=== PATIENT | female | born 1995 | race Caucasian/White ===

== ENCOUNTER 2017-03-07 01:05 | Emergency (ER) | payer BC ==
[2017-03-07 01:18] VITALS: BP 139/88
--- NOTE | 2017-03-07 01:48 | ER Document Report ---
ED Hand/Wrist Injury - General Chief Complaint: Thumb Injury Stated Complaint: FINGER INJURY Time Seen by Provider: 03/07/17 01:41 Mode of Arrival: Ambulatory Information source: Patient, Friend Notes: Patient comes emergency room with complaint of right thumb abrasion. Patient states that her cat crawled and a small hole in the wall and as she was trying to bang out the drywall she reached in to get the cat scraping the dorsal portion of the thumb on the nail and a piece of wood smacked the finger. Patient has a slight abrasion that has the bleeding under control but wants to be checked out. She denies any animal bite at this time the mental cat was involved. Patient states the board and [place] which she is here for. TRAVEL OUTSIDE OF THE [place] IN LAST 30 DAYS: No - HPI Injury to: Thumb Onset: Just prior to arrival Where: Home Timing: Constant, Still present Quality of pain: Achy, Dull, Throbbing Severity: Moderate Pain Level: 2 Past Medical History - General Information source: Patient - Social History Smoking Status: Current Some Day Smoker Cigarette use (# per day): Yes - 1 per day Frequency of alcohol use: Rare Drug Abuse: None Lives with: Family, Friend Family History: None Patient has suicidal ideation: No Patient has homicidal ideation: No Pulmonary Medical History: Reports: None EENT Medical History: Reports: None Neurological Medical History: Reports: None Endocrine Medical History: Reports: None Renal/ Medical History: Denies: Hx Peritoneal Dialysis Malignancy Medical History: Reports: None GI Medical History: Reports: None Musculoskeltal Medical History: Reports None Psychiatric Medical History: Reports: None Traumatic Medical History: Reports: None Infectious Medical History: Reports: None Other: Patient states last tetanus shot was about 6 months ago. - Immunizations Immunizations up to date: Yes Review of Systems - Review of Systems Constitutional: No symptoms reported EENT: No symptoms reported Cardiovascular: No symptoms reported Respiratory: No symptoms reported Gastrointestinal: No symptoms reported Genitourinary: No symptoms reported Female Genitourinary: No symptoms reported Musculoskeletal: Joint swelling Skin: Other - Abrasion to the dorsum right thumb knuckle Neurological/Psychological: No symptoms reported -: Yes All other systems reviewed and negative Physical Exam - Vital signs Vitals: Temp Pulse Resp BP Pulse Ox 97.9 F 100 17 139/88 H 99 03/07/17 01:15 03/07/17 01:15 03/07/17 01:15 03/07/17 01:15 03/07/17 01:15 Interpretation: Hypertensive - Notes Notes: Examination patient's right hand shows no swelling or decreased range of motion. She is in no apparent distress and is moving the thumb freely when she is somewhat distracted in conversation. - General General appearance: Appears well, Alert In distress: None - Respiratory Respiratory status: No respiratory distress Chest status: Nontender Breath sounds: Normal. No: Rhonchi, Stridor, Wheezing - Cardiovascular Rhythm: Regular Heart sounds: Normal auscultation Murmur: No - Extremities General upper extremity: Tender, Normal color, Normal strength, Normal temperature Hand: Tender, Abrasion, Other - Examination patient's right thumb shows her to be a small less than 5 mm abrasion at the dorsal portion of the MIP of the thumb. Right side only. Patient has full flexion-extension actively as well as passively. Patient has good cap refill in the nail bed of the right thumb. She also has good strength against resistance both in flexion and extension. There is no sign of major edema no sign of any acute abnormality with the exception of the small abrasion.. No: Normal - Skin Skin Temperature: Warm Skin Moisture: Dry Skin Color: [place], Other - As stated above on hand patient has a small less than 5 mm linear abrasion on the MIP of the right thumb. No bleeding currently full flexion and extension with no onset of bleeding in either direction. She has good cap refill in that finger nail bed as well as good strength against resistance to flexion and extension. Skin Turgor: Elastic Course - Vital Signs Vital signs: Temp Pulse Resp BP Pulse Ox 97.9 F 100 17 139/88 H 99 03/07/17 01:15 03/07/17 01:15 03/07/17 01:15 03/07/17 01:15 03/07/17 01:15 Procedures - Immobilization Right Finger Pre-Proc Neuro Vasc Exam: Normal Immobilizer type: Finger splint (Static) Performed by: EVIE Post-Proc Neuro Vasc Exam: Normal Alignment checked and good: Yes Discharge - Discharge Clinical Impression: Finger contusion Abrasion hand Qualifiers: Encounter type: initial encounter Laterality: right Qualified Code(s): S60.511A - Abrasion of right hand, initial encounter Condition: Stable Disposition: HOME, SELF-CARE Additional Instructions: Contusion Your injury has resulted in a contusion -- a crushing of the deep tissues. No injury to important structures was detected during the physician's exam. Contusions vary in the amount of pain they cause, and in the length of time required for healing. Typically, the area will become bruised, and will remain painful to touch for two or three weeks. However, most patients are back to working and playing within a few days. After the initial period of rest and cold-packs, your symptoms (together with the doctor's recommendations) will determine how rapidly you can get back to full activity. Usually this means "do what feels okay, but don't do things that hurt." If re-examination was recommended, it's important to follow up as instructed. Call the doctor or return any time if pain increases, if swelling becomes severe, if you develop numbness or weakness in an injured extremity, or if any other alarming symptoms occur.Abrasions An abrasion is a scraping injury of the skin. Some scarring may result. The seriousness of an abrasion is not always obvious at first. Hidden tissue damage may be present and infection may occur despite proper care. Complete healing may take from ten days to as long as a month. The healing time depends on the depth of the abrasion, and on the amount of crushing of underlying tissues from the injury. Keep the wound and dressing clean. Do not shower or bathe the area until okayed by the doctor. If the dressing gets wet, remove it and blot the wound dry, then reapply a clean dressing. Dressings should be changed every day. Sunscreen should be used for six months after the skin is healed. If any signs of infection occur (swelling, redness, increasing tenderness, red streaks, profuse purulent drainage from the abrasion, tender lumps in the armpit or groin above the abrasion, or fever), see the doctor immediatel Home and rest. Medications prescribed. Take all of the antibiotics please. Also use antibiotic cream on the area twice a day. Keep the area clean and dry as much as possible for the next 24-48 hours. Use the splint for about 3 or 4 days until it feels better. Should you have any concerns return to ER for a recheck and reevaluation. Take ibuprofen or Tylenol for pain or discomfort. He may consider icing it down twice a day for the contusion portion of this. Prescriptions: Clindamycin HCl 300 mg PO QID 7 Days #28 capsule Forms: Elevated Blood Pressure
== END 2017-03-07 02:03 | disposition home or self-care (01) ==
LOC: ER 01:05
DX: S60.00XA Contusion of unspecified finger without damage to nail, initial encounter (principal); S60.311A Abrasion of right thumb, initial encounter; W45.0XXA Nail entering through skin, initial encounter; W22.8XXA Striking against or struck by other objects, initial encounter; Y93.K9 Activity, other involving animal care; Y92.009 Unspecified place in unspecified non-institutional (private) residence as the place of occurrence of the external cause; F17.210 Nicotine dependence, cigarettes, uncomplicated
CPT/HCPCS: 99283

== ENCOUNTER 2017-03-07 17:53 | Emergency (ER) | payer BC ==
[2017-03-07] MEDS ORDERED: IBUPROFEN 800 MG TABLET PO ONE ×2 (18:21→18:29)
--- NOTE | 2017-03-07 18:22 | ER Document Report ---
ED Medical Screen (RME) - General Chief Complaint: Headache Stated Complaint: PAIN AND WEAKNESS Time Seen by Provider: 03/07/17 18:18 Mode of Arrival: Ambulatory Information source: Patient Notes: 22-year-old female who was seen here last night for a scrape to her finger presents with complaints of body aches headache that started today I have greeted and performed a rapid initial assessment of this patient. A comprehensive ED assessment and evaluation of the patient, analysis of test results and completion of the medical decision making process will be conducted by additional ED providers. PHYSICAL EXAMINATION: GENERAL: febrile HEAD: Atraumatic, normocephalic. EYES: Pupils equal round extraocular movements intact, conjunctiva are normal. ENT: Nares patent NECK: limited rom due ot pain LUNGS: No respiratory distress Musculoskeletal: Normal range of motion NEUROLOGICAL: Normal speech, normal gait. PSYCH: Normal mood, normal affect. SKIN: abrasion to finger TRAVEL OUTSIDE OF THE [place] IN LAST 30 DAYS: No - Related Data Allergies/Adverse Reactions: No Known Allergies Allergy (Unverified 03/07/17 17:57) Past Medical History - Social History Frequency of alcohol use: None Drug Abuse: Marijuana - Past Medical History Cardiac Medical History: Reports: Hx Hypertension Pulmonary Medical History: Reports: Hx Asthma Renal/ Medical History: Denies: Hx Peritoneal Dialysis Musculoskeltal Medical History: Reports Hx Arthritis Surgical Hx: Negative - Immunizations Immunizations up to date: Yes Physical Exam - Vital signs Vitals: Temp Pulse Resp BP Pulse Ox 102.4 F H 112 H 20 144/93 H 99 03/07/17 17:57 03/07/17 17:57 03/07/17 17:57 03/07/17 17:57 03/07/17 17:57 Course - Vital Signs Vital signs: Temp Pulse Resp BP Pulse Ox 102.4 F H 112 H 20 144/93 H 99 03/07/17 17:57 03/07/17 17:57 03/07/17 17:57 03/07/17 17:57 03/07/17 17:57
[2017-03-07] MEDS ORDERED: ONDANSETRON 4 MG TAB.RAPDIS PO ONE (18:29)
--- NOTE | 2017-03-07 19:36 | ER Document Report ---
ED Flu Like - General Mode of Arrival: Ambulatory Information source: Patient TRAVEL OUTSIDE OF THE [place] IN LAST 30 DAYS: No - HPI Onset: Other - see narrative Recently seen / treated by doctor: Yes <RHONDA LOWRY - Last Filed: 03/07/17 19:56> <JOHN NIEVES - Last Filed: 03/07/17 20:54> - General Chief Complaint: Headache Stated Complaint: PAIN AND WEAKNESS Time Seen by Provider: 03/07/17 18:18 Notes: Patient is a 22-year-old female that presents to the emergency department today with complaints of generalized joint pain. Patient states she just moved here 5 days ago from [place]. Patient was seen overnight last night for a scrape on her finger. Patient has a history of fibromyalgia. Patient states after she was discharged she developed this generalized joint achiness, a headache, and a fever. Patient denies a cough or sore throat. (RHONDA LOWRY) - Related Data Allergies/Adverse Reactions: No Known Allergies Allergy (Unverified 03/07/17 17:57) Past Medical History - General Information source: Patient - Social History Smoking Status: Current Some Day Smoker Cigarette use (# per day): Yes Frequency of alcohol use: None Drug Abuse: Marijuana Lives with: Spouse/Significant other Family History: None - Past Medical History Cardiac Medical History: Reports: Hx Hypertension Pulmonary Medical History: Reports: Hx Asthma Musculoskeltal Medical History: Reports Hx Arthritis Surgical Hx: Negative - Immunizations Immunizations up to date: Yes <RHONDA LOWRY - Last Filed: 03/07/17 19:56> Review of Systems - Review of Systems Constitutional: See HPI, Fever EENT: denies: Throat pain Cardiovascular: No symptoms reported Respiratory: denies: Cough Gastrointestinal: No symptoms reported Genitourinary: No symptoms reported Female Genitourinary: No symptoms reported Musculoskeletal: See HPI, Joint pain - generalized joint aches Skin: No symptoms reported Hematologic/Lymphatic: No symptoms reported Neurological/Psychological: See HPI, Headaches -: Yes All other systems reviewed and negative <RHONDA LOWRY - Last Filed: 03/07/17 19:56> Physical Exam - Vital signs Interpretation: Normal - General General appearance: Appears well, Alert - HEENT Head: Normocephalic, Atraumatic Eyes: Normal Pupils: PERRL Ears: Normal External canal: Normal Tympanic membrane: Normal Mucous membranes: Moist Pharynx: Normal Neck: Normal - Respiratory Respiratory status: No respiratory distress Chest status: Nontender Breath sounds: Other - coarse breath sounds bilaterally Chest palpation: Normal - Cardiovascular Rhythm: Regular Heart sounds: Normal auscultation Murmur: No - Abdominal Inspection: Obese Distension: No distension Bowel sounds: Normal Tenderness: Nontender Organomegaly: No organomegaly - Back Back: Normal, Nontender - Extremities General upper extremity: Normal inspection, Normal ROM, Normal strength. No: Edema General lower extremity: Normal inspection, Normal ROM, Normal strength. No: Edema - Neurological Neuro grossly intact: Yes Cognition: Normal Orientation: AAOx4 [place] Coma Scale Eye Opening: Spontaneous [place] Coma Scale Verbal: Oriented [place] Coma Scale Motor: Obeys Commands [place] Coma Scale Total: 15 Speech: Normal - Psychological Associated symptoms: Normal affect, Normal mood - Skin Skin Temperature: Warm Skin Moisture: Diaphoretic Skin Color: Normal <RHONDA LOWRY - Last Filed: 03/07/17 19:56> - Vital signs Vitals: Temp Pulse Resp BP Pulse Ox 102.4 F H 112 H 20 144/93 H 99 03/07/17 17:57 03/07/17 17:57 03/07/17 17:57 03/07/17 17:57 03/07/17 17:57 Course - Laboratory Result Diagrams: 03/07/17 19:55 03/07/17 19:55 <JOHN NIEVES - Last Filed: 03/07/17 20:54> - Vital Signs Vital signs: Temp Pulse Resp BP Pulse Ox 102.4 F H 112 H 20 144/93 H 99 03/07/17 17:57 03/07/17 17:57 03/07/17 17:57 03/07/17 17:57 03/07/17 17:57 - Laboratory Laboratory results interpreted by me: 03/07/17 03/07/17 03/07/17 19:55 19:55 19:55 MCV 79 L MCH 26.9 L RDW 16.2 H Lymphocytes % 7.4 L Monocytes % 14.4 H Absolute Lymphocytes 0.4 L Sodium 136.5 L Urine Blood SMALL H Discharge <RHONDA LOWRY - Last Filed: 03/07/17 19:56> <JOHN NIEVES - Last Filed: 03/07/17 20:54> - Discharge Clinical Impression: Viral syndrome, Myalgia Fever Qualifiers: Fever type: unspecified Qualified Code(s): R50.9 - Fever, unspecified Condition: Stable Disposition: HOME, SELF-CARE Additional Instructions: Viral Syndrome: The physician has diagnosed a viral infection. Viruses not only cause "colds," but can cause many different symptoms including generalized aching, fever, headache, cough, diarrhea, nausea, vomiting, and fatigue. The treatment, for the most part, is simply relief of symptoms. This means that antibiotics are usually not given. Rest, fluids, pain medications and, occasionally, medication for the specific symptoms that are most bothersome will be prescribed. Use good handwashing to avoid passing the virus to others. Shared toys should be cleaned with disinfectant. Clean the toilets, sinks, and counter surfaces in bathrooms. Launder clothing in hot water. Contact the physician if you develop any new or unusual symptoms such as severe headache, stiff neck, high fever, chest pain, productive cough, or shortness of breath. You should be rechecked if you don't see marked improvement within seven to 10 days. Your lab work and physical exam suggests this is a viral syndrome causing your fever and generalized aching. You should take Tylenol every 4 hours to keep your fever down. Drink plenty of fluids and get plenty of rest. Follow-up with a local medical doctor if not improving. RETURN TO THE EMERGENCY ROOM IF ANY NEW OR WORSENING SYMPTOMS. Scribe Attestation: 03/07/17 20:54 I personally performed the services described in the documentation, reviewed and edited the documentation which was dictated to the scribe in my presence, and it accurately records my words and actions. (JOHN NIEVES) Scribe Documentation - Scribe Written by Adam:: Adam Muñiz, 03/07/20172004 acting as scribe for :: Patrick <RHONDA LOWRY - Last Filed: 03/07/17 19:56>
[2017-03-07 20:21] LABS: ABSOLUTE LYMPHOCYTES (AUTO) 0.4 10^3/uL (0.5-4.7); ABSOLUTE MONOCYTES (AUTO) 0.8 10^3/uL (0.1-1.4); ABSOLUTE NEUT (AUTO) 4.4 10^3/uL (1.7-8.2); BASOPHILS % (AUTO) 0.9 % (0-2); EOSINOPHILS % (AUTO) 0.1 % (0-6); HEMATOCRIT 39.5 % (36.0-47.0); HEMOGLOBIN 13.4 g/dL (12.0-15.5); HGB HCT DIFFERENCE 0.7; LYMPHOCYTES % (AUTO) 7.4 % (13-45); MEAN CORPUSCULAR HEMOGLOBIN 26.9 pg (27.0-33.4); MEAN CORPUSCULAR HGB CONC 33.9 g/dL (32.0-36.0); MEAN CORPUSCULAR VOLUME 79 fl (80-97); MONOCYTES % (AUTO) 14.4 % (3-13); RED BLOOD COUNT 4.98 10^6/uL (3.72-5.28); RED CELL DISTRIBUTION WIDTH 16.2 % (11.5-14.0); SEGMENTED NEUTROPHILS % (AUTO) 77.2 % (42-78); WHITE BLOOD COUNT 5.7 10^3/uL (4.0-10.5)
[2017-03-07 20:22] LABS: AMORPHOUS SEDIMENT,URINE TRACE /HPF; APPEARANCE,URINE SLIGHTLY-CLOUDY; BILIRUBIN,URINE NEGATIVE (NEGATIVE); GLUCOSE, URINE NEGATIVE (NEGATIVE); KETONES,URINE NEGATIVE (NEGATIVE); LEUKOCYTE ESTERASE,URINE NEGATIVE (NEGATIVE); NITRITE,URINE NEGATIVE (NEGATIVE); PROTEIN,URINE NEGATIVE (NEGATIVE); UROBILINOGEN,URINE NEGATIVE mg/dL (<2.0)
[2017-03-07 20:32] LABS: ALANINE AMINOTRANSFERASE 37 U/L (9-52); ALBUMIN 4.4 g/dL (3.5-5.0); ALKALINE PHOSPHATASE 124 U/L (38-126); ANION GAP 13 (5-19); ASPARTATE AMINO TRANSFERASE 29 U/L (14-36); BILIRUBIN,DIRECT 0.4 mg/dL (0.0-0.4); BILIRUBIN,TOTAL 0.4 mg/dL (0.2-1.3); BLOOD UREA NITROGEN 10 mg/dL (7-20); CALCIUM 9.8 mg/dL (8.4-10.2); CARBON DIOXIDE 23 mmol/L (22-30); CHLORIDE 101 mmol/L (98-107); CREATININE RESULT 0.85 mg/dL (0.52-1.25); GLUCOSE 89 mg/dL (75-110); POTASSIUM 4.2 mmol/L (3.6-5.0); SODIUM 136.5 mmol/L (137-145)
[2017-03-08 05:31] VITALS: BP 119/84
== END 2017-03-07 21:00 | disposition home or self-care (01) ==
LOC: ER 17:53
DX: B34.9 Viral infection, unspecified (principal); M79.1 Myalgia; M25.50 Pain in unspecified joint; R51 Headache; R50.9 Fever, unspecified; F17.210 Nicotine dependence, cigarettes, uncomplicated; I10 Essential (primary) hypertension; J45.909 Unspecified asthma, uncomplicated
CPT/HCPCS: 99284; 36415; 87040; 87070; 87880; 85025; 80053; 81001; 87804; S0119

== ENCOUNTER 2017-07-12 14:37 | Emergency (ER) | payer BC, OTHER ==
[2017-07-12] MEDS ORDERED: ONDANSETRON 4 MG TAB.RAPDIS PO ONE (16:06)
[2017-07-12] MEDS ORDERED: OXYCODONE-ACETAMINOPHEN 5-325 MG TABLET PO ONE (16:06)
--- NOTE | 2017-07-12 16:08 | ER Document Report ---
ED GI/ - General Chief Complaint: Nausea Stated Complaint: DIZZY,NAUSEA,CHILLS Time Seen by Provider: 07/12/17 15:58 Mode of Arrival: Ambulatory Information source: Patient Notes: Patient is a 22 year old female who presents to the ER today for waking up this morning with body aches, nausea, headache. Patient denies any cough, rash but admits to some sinus congestion starting this morning as well. Patient has sick contacts at work with the same symptoms. She denies any shortness of breath, trouble breathing or history of asthma. She denies any vomiting or diarrhea. TRAVEL OUTSIDE OF THE [place] IN LAST 30 DAYS: No - Related Data Allergies/Adverse Reactions: No Known Allergies Allergy (Unverified 03/07/17 17:57) Past Medical History - General Information source: Patient - Social History Smoking Status: Current Every Day Smoker Chew tobacco use (# tins/day): No Frequency of alcohol use: None Drug Abuse: None Family History: None Patient has suicidal ideation: No Patient has homicidal ideation: No - Past Medical History Cardiac Medical History: Reports: Hx Hypertension Pulmonary Medical History: Reports: Hx Asthma Renal/ Medical History: Denies: Hx Peritoneal Dialysis Musculoskeltal Medical History: Reports Hx Arthritis - Immunizations Immunizations up to date: Yes Review of Systems - Review of Systems Constitutional: See HPI EENT: See HPI Cardiovascular: No symptoms reported Respiratory: See HPI Gastrointestinal: No symptoms reported Genitourinary: No symptoms reported Female Genitourinary: No symptoms reported Musculoskeletal: No symptoms reported Skin: No symptoms reported Hematologic/Lymphatic: No symptoms reported Neurological/Psychological: No symptoms reported Physical Exam - Vital signs Vitals: Temp Pulse Resp BP Pulse Ox 99.8 F 84 16 144/79 H 98 07/12/17 15:27 07/12/17 15:27 07/12/17 15:27 07/12/17 15:27 07/12/17 15:27 - Notes Notes: PHYSICAL EXAMINATION: GENERAL: Mildly ill-appearing, but in no acute distress. HEAD: Atraumatic, normocephalic. EYES: Pupils equal round and reactive to light, extraocular movements intact, sclera anicteric, conjunctiva are normal. ENT: ear canals without erythema or foreign body, TMs pearly wise with good bony landmarks, nares patent, oropharynx clear without exudates. Moist mucous membranes. airway patent NECK: Normal range of motion, supple without lymphadenopathy LUNGS: CTAB and equal. No wheezes rales or rhonchi. HEART: Regular rate and rhythm without murmurs ABDOMEN: Soft, no tenderness. No guarding, no rebound BACK: no vertebral tenderness, normal ROM GI/: no CVA tenderness EXTREMITIES: Normal range of motion, no pitting edema. No cyanosis. NEUROLOGICAL: Cranial nerves grossly intact. Normal sensory/motor exams. PSYCH: Normal mood, normal affect. SKIN: Warm, Dry, normal turgor, no rashes or lesions noted Course - Re-evaluation Re-evalutation: 07/12/17 16:07 Patient very likely has a viral syndrome, vital signs are normal here, she is afebrile. Will give her something for the headache and the nausea and have her sent home with symptomatic treatment. - Vital Signs Vital signs: Temp Pulse Resp BP Pulse Ox 99.8 F 84 16 144/79 H 98 07/12/17 15:27 07/12/17 15:27 07/12/17 15:27 07/12/17 15:27 07/12/17 15:27 Discharge - Discharge Clinical Impression: Viral syndrome Condition: Stable Disposition: HOME, SELF-CARE Additional Instructions: Return immediately for any new or worsening symptoms. Follow up with primary care provider, call tomorrow to make followup appointment. Rest and drink plenty of fluids. Prescriptions: Ondansetron [Zofran Odt 4 mg Tablet] 1 - 2 tab PO Q4HP PRN #30 tab.rapdis PRN Reason: Ibuprofen [Motrin 800 mg Tablet] 800 mg PO Q8H PRN #30 tab PRN Reason: Forms: Return to Work
[2017-07-12 16:37] LABS: APPEARANCE,URINE CLEAR; BILIRUBIN,URINE NEGATIVE (NEGATIVE); COLOR,URINE YELLOW; GLUCOSE, URINE NEGATIVE (NEGATIVE); KETONES,URINE NEGATIVE (NEGATIVE); LEUKOCYTE ESTERASE,URINE NEGATIVE (NEGATIVE); NITRITE,URINE NEGATIVE (NEGATIVE); PROTEIN,URINE NEGATIVE (NEGATIVE); UROBILINOGEN,URINE NEGATIVE mg/dL (<2.0)
[2017-07-12] MEDS ORDERED: ONDANSETRON ODT 4 MG TAB (6 TAB/ER DISP) PO PRN (16:50)
[2017-07-12 17:02] VITALS: BP 154/101
== END 2017-07-12 17:02 | disposition home or self-care (01) ==
LOC: ER 14:37
DX: B34.9 Viral infection, unspecified (principal); R11.0 Nausea; R09.81 Nasal congestion; R51 Headache; F17.200 Nicotine dependence, unspecified, uncomplicated; I10 Essential (primary) hypertension
CPT/HCPCS: 99284; 81025; 81001; S0119

== ENCOUNTER 2017-09-24 16:49 | Emergency (ER) | payer OTHER ==
--- NOTE | 2017-09-24 18:11 | ER Document Report ---
ED Medical Screen (RME) - General Chief Complaint: Weakness Stated Complaint: DIZZY, LEG PAIN, TINGLING ARMS, BLURRED VISION Time Seen by Provider: 09/24/17 18:02 Notes: RAPID MEDICAL EVALUATION DISCLOSURE I have seen this patient as part of a Rapid Medical Evaluation and, if applicable, placed any initially appropriate orders. The patient will be seen and fully evaluated, including a full history and physical exam, by a provider ( in Main ED or Fast Track) when a room becomes available. 22-year-old female here with complaints of tingling and weakness and her legs more so than her arms that started approximately 7 hours ago. 2 hours after onset, she started to have some blurry vision that has progressively worsened but denies any headaches nausea vomiting. Also complains of bilateral leg pain that shoots down from the hips but denies back pain. She has been eating drinking per usual. She states that what is concerning to her is the weakness in her extremities. TRAVEL OUTSIDE OF THE [place] IN LAST 30 DAYS: No - Related Data Allergies/Adverse Reactions: No Known Allergies Allergy (Verified 09/24/17 16:58) Past Medical History - Social History Chew tobacco use (# tins/day): No Frequency of alcohol use: None Drug Abuse: None - Past Medical History Cardiac Medical History: Reports: Hx Hypertension Pulmonary Medical History: Reports: Hx Asthma Renal/ Medical History: Denies: Hx Peritoneal Dialysis Musculoskeltal Medical History: Reports Hx Arthritis - Immunizations Immunizations up to date: Yes Physical Exam - Vital signs Vitals: Temp Pulse Resp BP Pulse Ox 98.7 F 88 17 138/94 H 98 09/24/17 16:55 09/24/17 16:55 09/24/17 16:55 09/24/17 16:55 09/24/17 16:55 Course - Vital Signs Vital signs: Temp Pulse Resp BP Pulse Ox 98.7 F 88 17 138/94 H 98 09/24/17 16:55 09/24/17 16:55 09/24/17 16:55 09/24/17 16:55 09/24/17 16:55
--- NOTE | 2017-09-24 19:02 | RADIOLOGY REPORT (SQ) ---
EXAM DESCRIPTION: CT HEAD WITHOUT COMPLETED DATE/TIME: 09/24/2017 6:50 pm REASON FOR STUDY: blurry vision, arm leg weakness; eval mass COMPARISON: None. TECHNIQUE: Axial images acquired through the brain without intravenous contrast. Images reviewed wi th bone, brain and subdural windows. Additional sagittal and coronal reconstructions were generated. Images stored on PACS. All CT scanners at this facility use dose modulation, iterative reconstruction, and/or weight based d osing when appropriate to reduce radiation dose to as low as reasonably achievable (ALARA). [facility]: Dose Right [facility]: CareDose [facility]: Dose Right [facility]: Teradose 4D [facility]: YouScribe RADIATION DOSE: CT Rad equipment meets quality standard of care and radiation dose reduction techniq ues were employed. CTDIvol: 53.2 mGy. DLP: 1017 mGy-cm. mGy. LIMITATIONS: None. FINDINGS: VENTRICLES: Normal size and contour. CEREBRUM: No masses. No hemorrhage. No midline shift. No evidence for acute infarction. Normal gra y/white matter differentiation. No areas of low density in the white matter. CEREBELLUM: No masses. No hemorrhage. No alteration of density. No evidence for acute infarction. EXTRAAXIAL SPACES: No fluid collections. No masses. ORBITS AND GLOBE: No intra- or extraconal masses. Normal contour of globe without masses. CALVARIUM: No fracture. PARANASAL SINUSES: No fluid or mucosal thickening. SOFT TISSUES: No mass or hematoma. OTHER: No other significant finding. IMPRESSION: NORMAL BRAIN CT WITHOUT CONTRAST. EVIDENCE OF ACUTE STROKE: NO. COMMENT: Quality ID # [id number]: Final reports with documentation of one or more dose reduction techniques (e.g., Automated exposure control, adjustment of the mA and/or kV according to patient size, use of iterative reconstruction technique) TECHNICAL DOCUMENTATION: JOB ID: [id number] [employer]- All Rights Reserved Reading location - IP/workstation name: [email or web address]
[2017-09-24 19:05] LABS: ABSOLUTE BASOPHILS # (AUTO) 0.1 10^3/uL (0.0-0.2); ABSOLUTE EOSINOPHILS # (AUTO) 0.4 10^3/uL (0.0-0.6); ABSOLUTE LYMPHOCYTES (AUTO) 3.8 10^3/uL (0.5-4.7); ABSOLUTE MONOCYTES (AUTO) 0.7 10^3/uL (0.1-1.4); ABSOLUTE NEUT (AUTO) 9.7 10^3/uL (1.7-8.2); EOSINOPHILS % (AUTO) 2.7 % (0-6); HEMATOCRIT 39.9 % (36.0-47.0); HEMOGLOBIN 13.2 g/dL (12.0-15.5); MEAN CORPUSCULAR HEMOGLOBIN 26.4 pg (27.0-33.4); MEAN CORPUSCULAR HGB CONC 32.9 g/dL (32.0-36.0); MEAN CORPUSCULAR VOLUME 80 fl (80-97); MONOCYTES % (AUTO) 4.6 % (3-13); PLATELET COUNT 405 10^3/uL (150-450); RED BLOOD COUNT 4.98 10^6/uL (3.72-5.28); RED CELL DISTRIBUTION WIDTH 15.2 % (11.5-14.0); SEGMENTED NEUTROPHILS % (AUTO) 65.7 % (42-78); TOTAL CELLS COUNTED % (AUTO) 100 %; WHITE BLOOD COUNT 14.8 10^3/uL (4.0-10.5)
[2017-09-24 19:21] LABS: ANION GAP 11 (5-19); BLOOD UREA NITROGEN 11 mg/dL (7-20); CALCIUM 9.8 mg/dL (8.4-10.2); CARBON DIOXIDE 26 mmol/L (22-30); CHLORIDE 104 mmol/L (98-107); CREATINE KINASE 91 U/L (30-135); GLUCOSE 95 mg/dL (75-110); PHOSPHORUS 4.5 mg/dL (2.5-4.5); POTASSIUM 4.4 mmol/L (3.6-5.0); SODIUM 141.4 mmol/L (137-145)
--- NOTE | 2017-09-24 20:42 | ER Document Report ---
ED General - General Mode of Arrival: Ambulatory Information source: Patient TRAVEL OUTSIDE OF THE [place] IN LAST 30 DAYS: No <RHONDA LOWRY - Last Filed: 09/24/17 21:24> <BONIFACIO IRBY - Last Filed: 09/25/17 01:45> - General Chief Complaint: Weakness Stated Complaint: DIZZY, LEG PAIN, TINGLING ARMS, BLURRED VISION Time Seen by Provider: 09/24/17 18:02 Notes: Patient is a 22-year-old female with a history of fibromyalgia that presents to the emergency department today with complaints of "pain all over". Patient describes pain as a "tingly, tight, sharp pain". Patient states it feels like "growing pains". Patient states she works at [employer] and she is on her feet all day. Patient states she has been "drinking Gatorade and water all day" so she thinks she is well hydrated. Patient complains of achiness with all movements. Patient denies any new activities, fall, trauma, use of supplements , or history of thyroid abnormalities. (RHONDA LOWRY) - Related Data Allergies/Adverse Reactions: No Known Allergies Allergy (Verified 09/24/17 16:58) Past Medical History - General Information source: Patient - Social History Smoking Status: Current Every Day Smoker Cigarette use (# per day): Yes Chew tobacco use (# tins/day): No Frequency of alcohol use: None Drug Abuse: None Occupation: [employer] Lives with: Family Family History: Reviewed & Not Pertinent Patient has suicidal ideation: No Patient has homicidal ideation: No - Past Medical History Cardiac Medical History: Reports: Hx Hypertension Pulmonary Medical History: Reports: Hx Asthma Musculoskeltal Medical History: Reports Hx Arthritis, Reports Hx Fibromyalgia Surgical Hx: Negative - Immunizations Immunizations up to date: Yes <RHONDA LOWRY - Last Filed: 09/24/17 21:24> Review of Systems - Review of Systems Constitutional: No symptoms reported EENT: No symptoms reported Cardiovascular: No symptoms reported Respiratory: No symptoms reported Gastrointestinal: No symptoms reported Genitourinary: No symptoms reported Female Genitourinary: No symptoms reported Musculoskeletal: See HPI, Muscle pain - "all over" mainly in legs and arms bilaterally Skin: No symptoms reported Hematologic/Lymphatic: No symptoms reported Neurological/Psychological: No symptoms reported -: Yes All other systems reviewed and negative <RHONDA LOWRY - Last Filed: 09/24/17 21:24> Physical Exam - Vital signs Interpretation: Normal - General General appearance: Appears well, Alert - HEENT Head: Normocephalic, Atraumatic Eyes: Normal Pupils: PERRL - Respiratory Respiratory status: No respiratory distress Chest status: Nontender Breath sounds: Normal Chest palpation: Normal - Cardiovascular Rhythm: Regular Heart sounds: Normal auscultation Murmur: No - Abdominal Inspection: Normal Distension: No distension Bowel sounds: Normal Tenderness: Nontender Organomegaly: No organomegaly - Back Back: Normal, Nontender - Extremities General upper extremity: Normal inspection, Nontender, Normal color, Normal ROM , Normal temperature General lower extremity: Normal inspection, Tender - B/l thighs, Normal color, Normal ROM, Normal temperature, Normal weight bearing. No: Krzysztof's sign - Neurological Neuro grossly intact: Yes Cognition: Normal Orientation: AAOx4 [place] Coma Scale Eye Opening: Spontaneous [place] Coma Scale Verbal: Oriented [place] Coma Scale Motor: Obeys Commands [place] Coma Scale Total: 15 Speech: Normal Motor strength normal: LUE, RUE, LLE, RLE Sensory: Normal - Psychological Associated symptoms: Normal affect, Normal mood - Skin Skin Temperature: Warm Skin Moisture: Dry Skin Color: Normal <BONIFACIO IRBY - Last Filed: 09/25/17 01:45> - Vital signs Vitals: Temp Pulse Resp BP Pulse Ox 98.7 F 88 17 138/94 H 98 09/24/17 16:55 09/24/17 16:55 09/24/17 16:55 09/24/17 16:55 09/24/17 16:55 Course - Laboratory Result Diagrams: 09/24/17 18:54 09/24/17 18:54 <RHONDA LOWRY - Last Filed: 09/24/17 21:24> - Laboratory Result Diagrams: 09/24/17 18:54 09/24/17 18:54 <BONIFACIO IRBY - Last Filed: 09/25/17 01:45> - Re-evaluation Re-evalutation: 09/25/17 Patient is a 22-year-old female who comes in complaining of upper and lower extremity pain that was worse at work. Patient is neurovascularly intact with full range of motion and strength throughout. No acute findings on blood work. TSH and CK within normal limits. Patient would like to go home she is feeling better. Stable for discharge. Return if any worsening or concerning symptoms. (BONIFACIO IRBY) - Vital Signs Vital signs: Temp Pulse Resp BP Pulse Ox 98.0 F 90 17 135/85 H 97 09/24/17 22:52 09/24/17 22:52 09/24/17 22:52 09/24/17 22:52 09/24/17 22:52 - Laboratory Laboratory results interpreted by me: 09/24/17 18:54 WBC 14.8 H MCH 26.4 L RDW 15.2 H Absolute Neutrophils 9.7 H Discharge <RHONDA LOWRY - Last Filed: 09/24/17 21:24> <BONIFACIO IRBY - Last Filed: 09/25/17 01:45> - Discharge Clinical Impression: Leg pain, bilateral Condition: Stable Disposition: HOME, SELF-CARE Instructions: Leg Pain Nonspecific ([facility]) Forms: Return to Work Scribe Attestation: 09/25/17 01:45 I personally performed the services described in the documentation, reviewed and edited the documentation which was dictated to the scribe in my presence, and it accurately records my words and actions. (BONIFACIO IRBY) Scribe Documentation - Scribe Written by Scribe:: Adam Muñiz, 09/24/20179 acting as scribe for :: Eduardo <RHONDA LOWRY - Last Filed: 09/24/17 21:24>
[2017-09-24] MEDS ORDERED: ACETAMINOPHEN 325 MG TABLET PO ONE (22:02)
[2017-09-24 23:03] VITALS: BP 135/85
== END 2017-09-24 22:52 | disposition home or self-care (01) ==
LOC: ER 16:49
DX: M79.604 Pain in right leg (principal); M79.605 Pain in left leg; R20.0 Anesthesia of skin; R53.1 Weakness; R42 Dizziness and giddiness; M79.7 Fibromyalgia; F17.210 Nicotine dependence, cigarettes, uncomplicated; I10 Essential (primary) hypertension; J45.909 Unspecified asthma, uncomplicated
CPT/HCPCS: 36415; 70450; 80048; 82550; 83735; 84100; 84443; 85025; 99285

== ENCOUNTER → 2017-10-14 | Outpatient (CLI) | payer OTHER ==
[2017-10-14 15:24] LABS: APPEARANCE,URINE CLEAR; BILIRUBIN,URINE NEGATIVE (NEGATIVE); COLOR,URINE YELLOW; GLUCOSE, URINE NEGATIVE (NEGATIVE); KETONES,URINE NEGATIVE (NEGATIVE); LEUKOCYTE ESTERASE,URINE NEGATIVE (NEGATIVE); NITRITE,URINE NEGATIVE (NEGATIVE); PROTEIN,URINE NEGATIVE (NEGATIVE); URINE SPECIFIC GRAVITY 1.026; UROBILINOGEN,URINE NEGATIVE mg/dL (<2.0)
[2017-10-14 15:27] LABS: ABSOLUTE BASOPHILS # (AUTO) 0.1 10^3/uL (0.0-0.2); ABSOLUTE EOSINOPHILS # (AUTO) 0.6 10^3/uL (0.0-0.6); ABSOLUTE MONOCYTES (AUTO) 0.9 10^3/uL (0.1-1.4); ABSOLUTE NEUT (AUTO) 9.5 10^3/uL (1.7-8.2); BASOPHILS % (AUTO) 0.6 % (0-2); EOSINOPHILS % (AUTO) 3.8 % (0-6); HEMATOCRIT 40.1 % (36.0-47.0); LYMPHOCYTES % (AUTO) 26.5 % (13-45); MEAN CORPUSCULAR HEMOGLOBIN 25.9 pg (27.0-33.4); MEAN CORPUSCULAR HGB CONC 32.5 g/dL (32.0-36.0); MEAN CORPUSCULAR VOLUME 80 fl (80-97); MONOCYTES % (AUTO) 5.9 % (3-13); PLATELET COUNT 425 10^3/uL (150-450); RED BLOOD COUNT 5.03 10^6/uL (3.72-5.28); RED CELL DISTRIBUTION WIDTH 15.5 % (11.5-14.0); SEGMENTED NEUTROPHILS % (AUTO) 63.2 % (42-78); TOTAL CELLS COUNTED % (AUTO) 100 %
[2017-10-14 15:52] LABS: ALANINE AMINOTRANSFERASE 18 U/L (9-52); ALBUMIN 4.3 g/dL (3.5-5.0); ALKALINE PHOSPHATASE 91 U/L (38-126); AMYLASE 45 U/L (30-110); ANION GAP 11 (5-19); ASPARTATE AMINO TRANSFERASE 20 U/L (14-36); BILIRUBIN,DIRECT 0.2 mg/dL (0.0-0.4); BILIRUBIN,TOTAL 0.3 mg/dL (0.2-1.3); BLOOD UREA NITROGEN 16 mg/dL (7-20); C-REACTIVE PROTEIN 8.2 mg/L (<10.0); CALCIUM 9.7 mg/dL (8.4-10.2); CARBON DIOXIDE 27 mmol/L (22-30); CHLORIDE 103 mmol/L (98-107); GLUCOSE 84 mg/dL (75-110); LIPASE 62.1 U/L (23-300); POTASSIUM 4.7 mmol/L (3.6-5.0); SODIUM 140.8 mmol/L (137-145); TOTAL PROTEIN 7.7 g/dL (6.3-8.2)
[2017-10-14 16:04] LABS: ERYTHROCYTE SEDIMENTATION RATE 14 mm/hr (0-20)
[2017-10-16 07:41] LABS: ENDOMYSIAL ANTIBODY IGA Negative (Negative)
[2017-10-16 13:48] LABS: HELICOBACTER PYLORI IGA AB <9.0 units (0.0-8.9); HELICOBACTER PYLORI IGG AB <0.80 (0.00-0.79); HELICOBACTER PYLORI IGM AB <9.0 units (0.0-8.9)
[2017-10-16 13:50] LABS: DEAMIDATED GLIADIN IGA AB 3 units (0-19); DEAMIDATED GLIADIN IGG AB 2 units (0-19); T-TRANSGLUTAMINASE (TTG) IGA <2 U/mL (0-3); T-TRANSGLUTAMINASE (TTG) IGG <2 U/mL (0-5)
[2017-10-16 20:08] LABS: SACCHAROMYCES CEREVISIAE IGA <20.0 Units (0.0-24.9); SACCHAROMYCES CEREVISIAE IGG 30.5 Units (0.0-24.9)
== END ==
LOC: LAB 14:25
PROVIDERS: ATTEND Family Medicine
DX: R10.9 Unspecified abdominal pain (principal); R19.7 Diarrhea, unspecified
CPT/HCPCS: 36415; 80053; 81001; 82150; 82656; 83520; 83690; 84443; 85025; 85652; 86140; 86671; 86677; 87045; 87177; 87205; 87493; 89055

== ENCOUNTER 2017-11-01 16:14 | Emergency (ER) | payer OTHER ==
[2017-11-01 16:36] VITALS: BP 139/91
--- NOTE | 2017-11-01 16:57 | ER Document Report ---
ED General - General Chief Complaint: Ear Pain Stated Complaint: HEADACHE Time Seen by Provider: 11/01/17 16:23 Mode of Arrival: Ambulatory Information source: Patient, Relative Notes: 22-year-old female presents with complaints of grinding sounds in her ears as well as generalized sensation of anxiety. Patient notes she has an extensive history of anxiety used to be on multiple medications but since she has moved here she has been unable to see a psychiatrist. She denies any fevers or chills not taking any medications at all at this time TRAVEL OUTSIDE OF THE [place] IN LAST 30 DAYS: No - HPI Onset: Other - several weeks Onset/Duration: Intermittent Quality of pain: No pain Severity: Mild Pain Level: Denies Associated symptoms: Other Exacerbated by: Denies Relieved by: Denies Similar symptoms previously: Yes Recently seen / treated by doctor: No - Related Data Allergies/Adverse Reactions: No Known Allergies Allergy (Verified 11/01/17 16:37) Past Medical History - Social History Smoking Status: Current Every Day Smoker Cigarette use (# per day): Yes Chew tobacco use (# tins/day): No Smoking Education Provided: No Frequency of alcohol use: None Drug Abuse: Marijuana Family History: Reviewed & Not Pertinent Patient has suicidal ideation: No Patient has homicidal ideation: No - Past Medical History Cardiac Medical History: Reports: Hx Hypertension Pulmonary Medical History: Reports: Hx Asthma Renal/ Medical History: Denies: Hx Peritoneal Dialysis Musculoskeltal Medical History: Reports Hx Arthritis, Reports Hx Fibromyalgia - Immunizations Immunizations up to date: Yes Review of Systems - Review of Systems Notes: REVIEW OF SYSTEMS: CONSTITUTIONAL : Denies fever, chills, or sweats. Denies recent illness. EENT: Grinding sounds in ears CARDIOVASCULAR: Denies chest pain. Denies palpitations or racing or irregular heart beat. Denies ankle edema. RESPIRATORY: Denies cough, cold, or chest congestion. Denies shortness of breath, difficulty breathing, or wheezing. GASTROINTESTINAL: Denies abdominal pain or distention. Denies nausea, vomiting , or diarrhea. Denies blood in vomitus, stools, or per rectum. Denies black, tarry stools. Denies constipation. GENITOURINARY: Denies difficulty urinating, painful urination, burning, frequency, blood in urine, or discharge. FEMALE GENITOURINARY: Denies vaginal bleeding, heavy or abnormal periods, irregular periods. Denies vaginal discharge or odor. MUSCULOSKELETAL: Denies back or neck pain or stiffness. Denies joint pain or swelling. SKIN: Denies rash, lesions or sores. HEMATOLOGIC : Denies easy bruising or bleeding. LYMPHATIC: Denies swollen, enlarged glands. NEUROLOGICAL: Denies confusion or altered mental status. Denies passing out or loss of consciousness. Denies dizziness or lightheadedness. Denies headache. Denies weakness or paralysis or loss of use of either side. Denies problems with gait or speech. Denies sensory loss, numbness, or tingling. Denies seizures. PSYCHIATRIC: anxiety depression ALL OTHER SYSTEMS REVIEWED AND NEGATIVE. PHYSICAL EXAMINATION: GENERAL: Well-appearing, well-nourished and in no acute distress. HEAD: Atraumatic, normocephalic. EYES: Pupils equal round and reactive to light, extraocular movements intact, conjunctiva are normal. ENT: Nares patent, oropharynx clear without exudates. Moist mucous membranes. NECK: Normal range of motion, supple without lymphadenopathy LUNGS: Breath sounds clear to auscultation bilaterally and equal. No wheezes rales or rhonchi. HEART: Regular rate and rhythm without murmurs ABDOMEN: Soft, nontender, nondistended abdomen. No guarding, no rebound. No masses appreciated. Female : deferred Musculoskeletal: Normal range of motion, no pitting or edema. No cyanosis. NEUROLOGICAL: Cranial nerves grossly intact. Normal speech, normal gait. Normal sensory, motor exams PSYCH: anxious SKIN: Warm, Dry, normal turgor, no rashes or lesions noted. Dictation was performed using [employer] voice recognition software Physical Exam - Vital signs Vitals: Temp Pulse Resp BP Pulse Ox 98.1 F 89 20 139/91 H 99 11/01/17 16:35 11/01/17 16:35 11/01/17 16:35 11/01/17 16:35 11/01/17 16:35 Course - Re-evaluation Re-evalutation: 11/01/17 20:19 Examination of the ears notes no significant abnormality, patient has no obvious signs of tinnitus or any life-threatening issues, I did ask mental health evaluate the patient for medication needs for her depression anxiety which I believe the cause of her symptoms, they have provided me with information and I will start the patient on medication as well as give her resources After performing a Medical Screening Examination, I estimate there is LOW risk for any life threatening mental health issues. At this time the patient looks extremely well and has not attempted severe self harm. I have reevaluated this patient multiple times and no significant life threatening changes are noted. The patient and I have discussed the diagnosis and risks, and we agree with discharging home with close follow-up with the understanding that symptoms and presentations can change. We also discussed returning to the Emergency Department immediately if new or worsening symptoms occur. We have discussed the symptoms which are most concerning (hallucinations, thoughts or actions of self harm or harm to others) that necessitate immediate return. - Vital Signs Vital signs: Temp Pulse Resp BP Pulse Ox 98.1 F 89 20 139/91 H 99 11/01/17 16:35 11/01/17 16:35 11/01/17 16:35 11/01/17 16:35 11/01/17 16:35 Discharge - Discharge Clinical Impression: Anxiety Tinnitus Qualifiers: Laterality: unspecified laterality Qualified Code(s): H93.19 - Tinnitus, unspecified ear Depressed Qualifiers: Depression Type: unspecified Qualified Code(s): F32.9 - Major depressive disorder, single episode, unspecified Condition: Stable Disposition: HOME, SELF-CARE Prescriptions: Buspirone HCl [Buspar 10 mg Tablet] 10 mg PO BID #60 tablet Venlafaxine HCl ER [Effexor Xr 37.5 mg Cap.sr] 37.5 mg PO DAILY #30 cap.sr.24h Forms: Return to Work Referrals: ALEJANDRINA CAMILO MD [Primary Care Provider] - Follow up tomorrow
== END 2017-11-01 17:00 | disposition home or self-care (01) ==
LOC: ER 16:14
DX: F41.9 Anxiety disorder, unspecified (principal); H93.19 Tinnitus, unspecified ear; F32.9 Major depressive disorder, single episode, unspecified; H92.03 Otalgia, bilateral; R51 Headache; I10 Essential (primary) hypertension; F17.210 Nicotine dependence, cigarettes, uncomplicated
CPT/HCPCS: 99282

== ENCOUNTER 2018-01-17 08:57 | Emergency (ER) | payer OTHER ==
[2018-01-17 09:04] VITALS: BP 138/93
--- NOTE | 2018-01-17 09:32 | ER Document Report ---
HPI - HPI Pain Level: 1 Notes: Patient is an otherwise healthy 23-year-old female who presents with chief complaint of "tapeworm". Patient reports over the last 6 months she has had strange and intermittent episodes of diarrhea and low abdominal cramping. Patient reports she has seen her primary care provider to no avail. Patient reports that just prior to arrival she had a bowel movement and there was a thin whitish archer strip that appeared to look like a crumbled straw wrapper. Patient reports she googled the symptoms and felt this was consistent with a tape worm. Patient denies any nausea, vomiting or fevers. Past Medical History - General Information source: Patient - Social History Smoking Status: Current Every Day Smoker Drug Abuse: Marijuana Family History: Reviewed & Not Pertinent Patient has suicidal ideation: No Patient has homicidal ideation: No - Past Medical History Cardiac Medical History: Reports: Hx Hypertension Pulmonary Medical History: Reports: Hx Asthma Renal/ Medical History: Denies: Hx Peritoneal Dialysis Musculoskeletal Medical History: Reports Hx Arthritis, Reports Hx Fibromyalgia - Immunizations Immunizations up to date: Yes Vertical Provider Document - CONSTITUTIONAL Notes: PHYSICAL EXAMINATION: GENERAL: Well-appearing, well-nourished and in no acute distress. HEAD: Atraumatic, normocephalic. EYES: Pupils equal round and reactive to light, extraocular movements intact, conjunctiva are normal. ENT: Nares patent, oropharynx clear without exudates. Moist mucous membranes. NECK: Normal range of motion, supple without lymphadenopathy LUNGS: Breath sounds clear to auscultation bilaterally and equal. No wheezes rales or rhonchi. HEART: Regular rate and rhythm without murmurs ABDOMEN: Soft, nontender, nondistended abdomen. No guarding, no rebound. No masses appreciated. Female : deferred Musculoskeletal: Normal range of motion, no pitting or edema. No cyanosis. NEUROLOGICAL: Cranial nerves grossly intact. Normal speech, normal gait. Normal sensory, motor exams PSYCH: Normal mood, normal affect. SKIN: Warm, Dry, normal turgor, no rashes or lesions noted. - INFECTION CONTROL TRAVEL OUTSIDE OF THE [place] 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 Will treat patient and discharged home. Patient encouraged to follow-up with her primary care provider in the next 3-5 days for a follow-up. Went over side effects of medication with patient. - Vital Signs Vital signs: Temp Pulse Resp BP Pulse Ox 98.4 F 95 16 138/93 H 96 01/17/18 09:02 01/17/18 09:02 01/17/18 09:02 01/17/18 09:02 01/17/18 09:02 Discharge - Discharge Clinical Impression: Tapeworm Condition: Stable Disposition: HOME, SELF-CARE Additional Instructions: Based upon your symptoms and description it appears that you have probably passed a tapeworm. Please take this medication I am prescribing as a one-time dose. Please return to the emergency department if you develop worsening symptoms, abdominal pain, blood in your stools, fever or any other symptom that is concerning to you. Please follow-up with Dr. Camilo in the next 3-5 days for a follow-up. Prescriptions: Albendazole [Albenza] 400 mg PO NOW #4 tablet Praziquantel 2,400 mg PO ONCE 1 Days #4 tablet Forms: Return to Work Referrals: ALEJANDRINA CAMILO MD [Primary Care Provider] - Follow up as needed
== END 2018-01-17 09:37 | disposition home or self-care (01) ==
LOC: ER 08:57
DX: B71.9 Cestode infection, unspecified (principal); R10.30 Lower abdominal pain, unspecified; R19.7 Diarrhea, unspecified; F17.200 Nicotine dependence, unspecified, uncomplicated; I10 Essential (primary) hypertension
CPT/HCPCS: 99283

== ENCOUNTER 2018-01-21 13:22 | Emergency (ER) | payer OTHER ==
[2018-01-21] MEDS ORDERED: ONDANSETRON HCL INJ/PF 4 MG/2 ML SDV IV ONE (14:21)
[2018-01-21] MEDS ORDERED: RINGERS SOLUTION,LACTATED 1,000 ML IV ONE (14:21)
[2018-01-21] MEDS ORDERED: ONDANSETRON HCL INJ/PF 4 MG/2 ML SDV ONE (14:25)
--- NOTE | 2018-01-21 14:29 | ER Document Report ---
ED GI/ - General Chief Complaint: General Weakness Stated Complaint: NAUSEA, WEAKNESS Time Seen by Provider: 01/21/18 14:07 Mode of Arrival: Ambulatory Information source: Patient Notes: 23-year-old female presents to ED for complaint of general body aches dizziness nausea vomiting and diarrhea since she has been taken the bill tried for her tapeworm on 01/17/2019. She states she just feels very weak all the time now because of the diarrhea nausea and vomiting. Patient is alert and oriented respirations regular and unlabored speaking in full sentences and walks with a steady gait. TRAVEL OUTSIDE OF THE [place] IN LAST 30 DAYS: No - HPI Patient complains to provider of: Abdominal pain, Diarrhea, Vomiting, Other - States she feels tired and weak body aches Onset: Other - 01/17/2018 Timing/Duration: Persistent Quality of pain: Cramping Severity at maximum: Moderate Severity in ED: Moderate Pain Level: 2 Location: Other - generalized Vaginal bleeding (Compared to normal period): None Associated symptoms: Diarrhea, Nausea, Vomiting, Other - Weak and fatigued all the time from the diarrhea and nausea and vomiting Exacerbated by: Denies Relieved by: Denies Similar symptoms previously: Yes Recently seen / treated by doctor: No - Related Data Allergies/Adverse Reactions: No Known Allergies Allergy (Verified 01/21/18 13:23) Past Medical History - General Information source: Patient - Social History Smoking Status: Current Every Day Smoker Cigarette use (# per day): Yes - 3-4 cigerattes a day Chew tobacco use (# tins/day): No Smoking Education Provided: Yes Frequency of alcohol use: None Drug Abuse: None Occupation: call center Lives with: Spouse/Significant other Family History: Reviewed & Not Pertinent Patient has suicidal ideation: No Patient has homicidal ideation: No - Past Medical History Cardiac Medical History: Reports: Hx Hypertension Pulmonary Medical History: Reports: Hx Asthma EENT Medical History: Reports: None Neurological Medical History: Reports: None Endocrine Medical History: Reports: None Renal/ Medical History: Reports: None Malignancy Medical History: Reports: None GI Medical History: Reports: Other - Tape worm Musculoskeletal Medical History: Reports Hx Arthritis, Reports Hx Fibromyalgia Skin Medical History: Reports None Psychiatric Medical History: Reports: None Traumatic Medical History: Reports: None Infectious Medical History: Reports: None Surgical Hx: Negative Past Surgical History: Reports: None - Immunizations Immunizations up to date: Yes Hx Diphtheria, Pertussis, Tetanus Vaccination: Yes Review of Systems - Review of Systems Constitutional: No symptoms reported EENT: No symptoms reported Cardiovascular: No symptoms reported Respiratory: No symptoms reported Gastrointestinal: Abdominal pain, Diarrhea, Nausea, Vomiting Genitourinary: No symptoms reported Female Genitourinary: No symptoms reported Musculoskeletal: No symptoms reported Skin: No symptoms reported Hematologic/Lymphatic: No symptoms reported Neurological/Psychological: Weakness -: Yes All other systems reviewed and negative Physical Exam - Vital signs Vitals: Temp Pulse Resp BP Pulse Ox 98.3 F 93 20 146/88 H 100 01/21/18 13:31 01/21/18 13:31 01/21/18 13:31 01/21/18 13:31 01/21/18 13:31 Interpretation: Normal - General General appearance: Appears well, Alert - HEENT Head: Normocephalic, Atraumatic Eyes: Normal Pupils: PERRL - Respiratory Respiratory status: No respiratory distress Chest status: Nontender Breath sounds: Normal Chest palpation: Normal - Cardiovascular Rhythm: Regular Heart sounds: Normal auscultation Murmur: No - Abdominal Inspection: Normal Distension: No distension Bowel sounds: Normal Tenderness: Tender Organomegaly: No organomegaly - Back Back: Normal, Nontender - Extremities General upper extremity: Normal inspection, Nontender, Normal color, Normal ROM , Normal temperature General lower extremity: Normal inspection, Nontender, Normal color, Normal ROM , Normal temperature, Normal weight bearing. No: Krzysztof's sign - Neurological Neuro grossly intact: Yes Cognition: Normal Orientation: AAOx4 [place] Coma Scale Eye Opening: Spontaneous [place] Coma Scale Verbal: Oriented [place] Coma Scale Motor: Obeys Commands [place] Coma Scale Total: 15 Speech: Normal Motor strength normal: LUE, RUE, LLE, RLE Sensory: Normal - Psychological Associated symptoms: Normal affect, Normal mood - Skin Skin Temperature: Warm Skin Moisture: Dry Skin Color: Normal Course - Vital Signs Vital signs: Temp Pulse Resp BP Pulse Ox 98.0 F 82 16 142/87 H 99 01/21/18 16:53 01/21/18 16:53 01/21/18 16:53 01/21/18 16:53 01/21/18 16:53 - Laboratory Result Diagrams: 01/21/18 14:40 01/21/18 14:40 Laboratory results interpreted by me: 01/21/18 01/21/18 14:40 15:40 WBC 13.5 H RDW 16.0 H Absolute Neutrophils 8.6 H Ur Leukocyte Esterase TRACE H Discharge - Discharge Clinical Impression: Nausea, vomiting, and diarrhea Condition: Stable Disposition: HOME, SELF-CARE Additional Instructions: VOMITING: Vomiting (or nausea without vomiting) can be caused by many other different problems. It can mean that something's wrong with the stomach, such as ulcers or inflammation or the intestinal tract, such as appendicitis. But it can also be a symptom of a problem that has nothing to do with the stomach or intestines. Vomiting is common with severe headaches, earaches, tonsillitis, and kidney infections, etc. We see it with pneumonia or heart attacks. Drugs can cause nausea and vomiting. Many abdominal problems cause vomiting; for example, gallstones, kidney stones, pancreatitis, and intestinal obstruction ( blocked bowels). In most cases, curing the vomiting depends on fixing the problem that caused it. For temporary relief, we may use an anti-nausea medicine. For home use, we can prescribe suppositories, chewable pills, pills that dissolve in the mouth, or liquid anti-nausea drugs. If the vomiting seems to be caused by a problem in the stomach, acid-suppressing drugs may be prescribed as well. It's important to avoid dehydration. Sip small amounts of clear liquids ( soft drinks, tea, broth, etc) . Try to take fluids frequently even if you are vomiting to prevent dehydration. Take increasing amounts of fluid and when liquids are being consumed successfully, advance to small amounts of bland food (toast, soups, mashed potatoes, etc.) until you are able to resume a regular diet. Avoid aspirin, tobacco, and alcohol. If the vomiting worsens, if the problem that's making you vomit worsens, or if there's evidence of bleeding in the stomach (such as black, tarry stool, or bloody or black vomit), you should return immediately. Also, return if abdominal pain worsens or becomes localized to one area or you develop high fever. Call your doctor if you aren't improved in 24 hours. DIARRHEA, NON-SPECIFIC: Diarrhea means frequent, watery stools. There are many causes. Any problem that keeps the intestinal tract from absorbing water from the stool can lead to diarrhea. A sudden new diarrhea problem is usually caused by a virus, food sensitivity, toxic bacteria, or drugs. In this case, we expect the problem to go away soon. Testing is done only if you seem seriously ill from the diarrhea. If you have chronic diarrhea, or diarrhea that keeps coming back, we need to find out why. Chronic diarrhea can be due to inflammation of the bowels such as Crohn's disease or ulcerative colitis, food sensitivity such as intolerance to lactose or wheat protein, irritable bowel syndrome, and other problems. If your diarrhea is a significant problem but it's not clear why you have it, we' ll refer you to a specialist for further testing. During an episode of diarrhea, drink small amounts (two to six ounces) of clear liquids (soft drinks, sport drinks, herb teas, broth, etc). Take fluids frequently to prevent dehydration. It's usually not a problem to take mild anti- diarrhea medication such as Kaopectate or Pepto-Bismol. As the diarrhea eases, advance to small amounts of bland food (mashed potato, toast) for 24 hours. Call the physician if blood appears in your vomit or stool, if vomiting lasts longer than 24 hours, if the abdominal pain worsens or becomes localized to one area, if you develop high fever, or if you become lightheaded and weak. VIRAL SYNDROME: The physician has diagnosed a viral infection. Viruses not only cause "colds," but can cause many different symptoms including generalized aching, fever, headache, cough, diarrhea, nausea, vomiting, and fatigue. The treatment, for the most part, is simply relief of symptoms. This means that antibiotics are usually not given. Rest, fluids, pain medications and, occasionally, medication for the specific symptoms that are most bothersome will be prescribed. Use good handwashing to avoid passing the virus to others. Shared toys should be cleaned with disinfectant. Clean the toilets, sinks, and counter surfaces in bathrooms. Launder clothing in hot water. Contact the physician if you develop any new or unusual symptoms such as severe headache, stiff neck, high fever, chest pain, productive cough, or shortness of breath. You should be rechecked if you don't see marked improvement within seven to 10 days. INTRAVENOUS (I V) FLUIDS: As part of your care today, you received intravenous (IV) fluids. IV fluids are administered to patients who are dehydrated or to those who have certain chemical (electrolyte) abnormalities that need correcting. ANTINAUSEA MEDICATION: You have been given a medication to suppress nausea and vomiting. This type of medication can be given as a shot, pill, or suppository. It will usually last for many hours. Pills and shots usually last six to eight hours. For the typical illness, only one or two doses of the medication may be necessary. Mild lightheadedness may occur. This type of medicine can cause drowsiness. Do not drive or operate dangerous machinery while under its influence. Do not mix with alcohol. See your doctor at once if you have muscle spasms or tightness, or uncontrollable motions (particularly of the neck, mouth, or jaw). Persistent vomiting or severe lightheadedness should also be evaluated by the physician. FOLLOW-UP CARE: If you have been referred to a physician for follow-up care, call the physician s office for an appointment as you were instructed or within the next two days. If you experience worsening or a significant change in your symptoms, notify the physician immediately or return to the Emergency Department at any time for re-evaluation. Prescriptions: Promethazine HCl [Phenergan 25 mg Tablet] 25 mg PO Q6H PRN #15 tablet PRN Reason: Forms: Elevated Blood Pressure, Smoking Cessation Education, Return to Work Referrals: ALEJANDRINA CAMILO MD [Primary Care Provider] - Follow up in 3-5 days
[2018-01-21 15:04] LABS: ABSOLUTE BASOPHILS # (AUTO) 0.1 10^3/uL (0.0-0.2); ABSOLUTE EOSINOPHILS # (AUTO) 0.5 10^3/uL (0.0-0.6); ABSOLUTE LYMPHOCYTES (AUTO) 3.4 10^3/uL (0.5-4.7); ABSOLUTE MONOCYTES (AUTO) 0.9 10^3/uL (0.1-1.4); ABSOLUTE NEUT (AUTO) 8.6 10^3/uL (1.7-8.2); BASOPHILS % (AUTO) 0.6 % (0-2); EOSINOPHILS % (AUTO) 3.9 % (0-6); HEMATOCRIT 38.3 % (36.0-47.0); HEMOGLOBIN 12.9 g/dL (12.0-15.5); LYMPHOCYTES % (AUTO) 25.3 % (13-45); MEAN CORPUSCULAR HEMOGLOBIN 27.1 pg (27.0-33.4); MEAN CORPUSCULAR HGB CONC 33.6 g/dL (32.0-36.0); MEAN CORPUSCULAR VOLUME 81 fl (80-97); MONOCYTES % (AUTO) 6.5 % (3-13); PLATELET COUNT 429 10^3/uL (150-450); RED BLOOD COUNT 4.75 10^6/uL (3.72-5.28); SEGMENTED NEUTROPHILS % (AUTO) 63.7 % (42-78); TOTAL CELLS COUNTED % (AUTO) 100 %; WHITE BLOOD COUNT 13.5 10^3/uL (4.0-10.5)
[2018-01-21 15:26] LABS: ALANINE AMINOTRANSFERASE 14 U/L (9-52); ALKALINE PHOSPHATASE 83 U/L (38-126); ANION GAP 12 (5-19); ASPARTATE AMINO TRANSFERASE 18 U/L (14-36); BILIRUBIN,DIRECT 0.2 mg/dL (0.0-0.4); BILIRUBIN,TOTAL 0.2 mg/dL (0.2-1.3); BLOOD UREA NITROGEN 11 mg/dL (7-20); CALCIUM 9.1 mg/dL (8.4-10.2); CARBON DIOXIDE 24 mmol/L (22-30); CHLORIDE 105 mmol/L (98-107); GLUCOSE 97 mg/dL (75-110); POTASSIUM 4.4 mmol/L (3.6-5.0); SODIUM 140.9 mmol/L (137-145); TOTAL PROTEIN 7.3 g/dL (6.3-8.2)
[2018-01-21 16:09] LABS: APPEARANCE,URINE SLIGHTLY-CLOUDY; BILIRUBIN,URINE NEGATIVE (NEGATIVE); COLOR,URINE YELLOW; GLUCOSE, URINE NEGATIVE (NEGATIVE); KETONES,URINE NEGATIVE (NEGATIVE); LEUKOCYTE ESTERASE,URINE TRACE (NEGATIVE); NITRITE,URINE NEGATIVE (NEGATIVE); PROTEIN,URINE NEGATIVE (NEGATIVE); URINE SPECIFIC GRAVITY 1.023; UROBILINOGEN,URINE NEGATIVE mg/dL (<2.0)
[2018-01-21] MEDS ORDERED: PROMETHAZINE HCL 25 MG TABLET PO ONE (16:48)
[2018-01-21 16:54] VITALS: BP 142/87
== END 2018-01-21 17:01 | disposition home or self-care (01) ==
LOC: ER 13:22
DX: R11.2 Nausea with vomiting, unspecified (principal); R19.7 Diarrhea, unspecified; B71.9 Cestode infection, unspecified; R42 Dizziness and giddiness; R53.1 Weakness; R53.83 Other fatigue; R10.84 Generalized abdominal pain; F17.210 Nicotine dependence, cigarettes, uncomplicated; I10 Essential (primary) hypertension; J45.909 Unspecified asthma, uncomplicated
CPT/HCPCS: 99285; 96361; 96374; 36415; 84703; 85025; 80053; 81001; J2405; J7120

== ENCOUNTER 2018-02-01 10:24 | Emergency (ER) | payer OTHER ==
[2018-02-01] MEDS ORDERED: DIPHENHYDRAMINE HCL 50 MG/ML VIAL IV ONE (10:52)
[2018-02-01] MEDS ORDERED: NORMAL SALINE 1000 ML 1,000 ML IV ONE (10:52)
[2018-02-01] MEDS ORDERED: KETOROLAC TROMETHAMINE INJ/PF 30 MG/1 ML SDV IV ONE (10:52)
[2018-02-01] MEDS ORDERED: METOCLOPRAMIDE HCL INJ/PF 10 MG/2 ML SDV IV ONE (10:52)
--- NOTE | 2018-02-01 11:24 | ER Document Report ---
ED Headache - General Chief Complaint: Blurred Vision Stated Complaint: BLURRED VISION, HEAD PAIN Time Seen by Provider: 02/01/18 10:47 Mode of Arrival: Ambulatory Notes: 23 yo female had to leave work due to gradual onset left sided headache, nausea , blurred/hazy vision after she got to work at 10 am. She has history of daily morning dizziness and fatique for months. No migraine hx. HUANG is now gone after the medications given. TRAVEL OUTSIDE OF THE [place] IN LAST 30 DAYS: No - Related Data Allergies/Adverse Reactions: No Known Allergies Allergy (Verified 02/01/18 10:27) Past Medical History - General Information source: Patient - Social History Smoking Status: Current Every Day Smoker Chew tobacco use (# tins/day): No Frequency of alcohol use: None Drug Abuse: Marijuana Lives with: Spouse/Significant other Family History: Reviewed & Not Pertinent Patient has suicidal ideation: No Patient has homicidal ideation: No - Past Medical History Cardiac Medical History: Reports: Hx Hypertension Pulmonary Medical History: Reports: Hx Asthma Renal/ Medical History: Denies: Hx Peritoneal Dialysis Musculoskeletal Medical History: Reports Hx Arthritis, Reports Hx Fibromyalgia Surgical Hx: Negative - Immunizations Immunizations up to date: Yes Hx Diphtheria, Pertussis, Tetanus Vaccination: Yes Review of Systems - Review of Systems Constitutional: No symptoms reported EENT: See HPI Cardiovascular: No symptoms reported Respiratory: No symptoms reported Gastrointestinal: See HPI Genitourinary: No symptoms reported Female Genitourinary: No symptoms reported Musculoskeletal: No symptoms reported Skin: No symptoms reported Hematologic/Lymphatic: No symptoms reported Neurological/Psychological: See HPI Physical Exam - Vital signs Vitals: Temp Pulse Resp BP Pulse Ox 98.1 F 92 18 135/93 H 98 02/01/18 10:30 02/01/18 10:30 02/01/18 10:30 02/01/18 10:30 02/01/18 10:30 Interpretation: Normal - General General appearance: Appears well, Alert In distress: None - HEENT Head: Normocephalic, Atraumatic Eyes: Normal Conjunctiva: Normal Extraocular movements intact: Yes Pupils: PERRL Nerve palsy: No Pharynx: Normal Neck: Supple. No: Lymphadenopathy - Respiratory Respiratory status: No respiratory distress Chest status: Nontender Breath sounds: Normal Chest palpation: Normal - Cardiovascular Rhythm: Regular Heart sounds: Normal auscultation Murmur: No - Abdominal Inspection: Normal Distension: No distension Bowel sounds: Normal Tenderness: Nontender Organomegaly: No organomegaly - Back Back: Normal, Nontender - Extremities General upper extremity: Normal inspection, Nontender, Normal color, Normal ROM , Normal temperature General lower extremity: Normal inspection, Nontender, Normal color, Normal ROM , Normal temperature, Normal weight bearing. No: Krzysztof's sign - Neurological Neuro grossly intact: Yes Cognition: Normal Orientation: AAOx4 [place] Coma Scale Eye Opening: Spontaneous Katia Coma Scale Verbal: Oriented [place] Coma Scale Motor: Obeys Commands [place] Coma Scale Total: 15 Speech: Normal Motor strength normal: LUE, RUE, LLE, RLE Sensory: Normal - Psychological Associated symptoms: Normal affect, Normal mood - Skin Skin Temperature: Warm Skin Moisture: Dry Skin Color: Normal Skin irregularity: negative: Rash Course - Re-evaluation Re-evalutation: 02/01/18 13:34 Labs are negative, CT scan is negative. Will refer the patient to a neurologist and opthamologist. Headache is still resolved. feels much better after IV fluid completed. 02/01/18 21:32 - Vital Signs Vital signs: Temp Pulse Resp BP Pulse Ox 98 F 78 16 139/84 H 99 02/01/18 13:49 02/01/18 13:49 02/01/18 13:49 02/01/18 13:49 02/01/18 13:49 - Laboratory Result Diagrams: 02/01/18 11:18 02/01/18 11:18 Laboratory results interpreted by me: 02/01/18 02/01/18 11:18 11:18 WBC 12.5 H MCH 26.7 L RDW 15.9 H Direct Bilirubin 0.5 H Discharge - Discharge Clinical Impression: Blurred vision, bilateral, Dizziness Headache Qualifiers: Headache type: unspecified Headache chronicity pattern: acute headache Intractability: not intractable Qualified Code(s): R51 - Headache Condition: Good Disposition: HOME, SELF-CARE Instructions: Acetaminophen, Headache ([facility]), Ibuprofen (General) ([facility]), Reglan ([facility]), Toradol Injection ([facility]) Additional Instructions: See the neurologist See the eye doctor tomorrow Return to the emergency room for any worsening of symptoms Motrin up to 800 mg 3 times a day for headache or pain Tylenol up to 4000 mg a day for headache pain Prescriptions: Ibuprofen [Motrin 800 mg Tablet] 800 mg PO Q8HP PRN #30 tablet PRN Reason: Forms: Return to Work Referrals: ROSA MARIA SPENCER MD [ACTIVE STAFF] - Follow up tomorrow DANYELL GARCIA MD [NO LOCAL MD] - Follow up tomorrow
[2018-02-01 11:31] LABS: ABSOLUTE BASOPHILS # (AUTO) 0.1 10^3/uL (0.0-0.2); ABSOLUTE EOSINOPHILS # (AUTO) 0.4 10^3/uL (0.0-0.6); ABSOLUTE MONOCYTES (AUTO) 0.7 10^3/uL (0.1-1.4); ABSOLUTE NEUT (AUTO) 8.1 10^3/uL (1.7-8.2); BASOPHILS % (AUTO) 1.2 % (0-2); EOSINOPHILS % (AUTO) 3.4 % (0-6); HEMOGLOBIN 13.2 g/dL (12.0-15.5); LYMPHOCYTES % (AUTO) 24.4 % (13-45); MEAN CORPUSCULAR HEMOGLOBIN 26.7 pg (27.0-33.4); MEAN CORPUSCULAR VOLUME 81 fl (80-97); MONOCYTES % (AUTO) 5.6 % (3-13); PLATELET COUNT 449 10^3/uL (150-450); RED BLOOD COUNT 4.94 10^6/uL (3.72-5.28); RED CELL DISTRIBUTION WIDTH 15.9 % (11.5-14.0); SEGMENTED NEUTROPHILS % (AUTO) 65.4 % (42-78); TOTAL CELLS COUNTED % (AUTO) 100 %; WHITE BLOOD COUNT 12.5 10^3/uL (4.0-10.5)
[2018-02-01 11:47] LABS: ALBUMIN 4.4 g/dL (3.5-5.0); ANION GAP 10 (5-19); BILIRUBIN,DIRECT 0.5 mg/dL (0.0-0.4); BILIRUBIN,TOTAL 0.5 mg/dL (0.2-1.3); CALCIUM 9.5 mg/dL (8.4-10.2); CARBON DIOXIDE 26 mmol/L (22-30); CHLORIDE 105 mmol/L (98-107); GLUCOSE 102 mg/dL (75-110); SODIUM 141.3 mmol/L (137-145); TOTAL PROTEIN 7.9 g/dL (6.3-8.2)
[2018-02-01 11:56] LABS: ALANINE AMINOTRANSFERASE 18 U/L (9-52); ALKALINE PHOSPHATASE 75 U/L (38-126); ASPARTATE AMINO TRANSFERASE 28 U/L (14-36); BLOOD UREA NITROGEN 13 mg/dL (7-20); POTASSIUM 4.9 mmol/L (3.6-5.0)
--- NOTE | 2018-02-01 12:58 | RADIOLOGY REPORT (SQ) ---
EXAM DESCRIPTION: CT HEAD WITHOUT COMPLETED DATE/TIME: 02/01/2018 12:44 pm REASON FOR STUDY: headache COMPARISON: August. TECHNIQUE: Axial images acquired through the brain without intravenous contrast. Images reviewed wi th bone, brain and subdural windows. Additional sagittal and coronal reconstructions were generated. Images stored on PACS. All CT scanners at this facility use dose modulation, iterative reconstruction, and/or weight based d osing when appropriate to reduce radiation dose to as low as reasonably achievable (ALARA). [facility]: Dose Right [facility]: CareDose [facility]: Dose Right [facility]: Teradose 4D [facility]: [employer] RADIATION DOSE: CT Rad equipment meets quality standard of care and radiation dose reduction techniq ues were employed. CTDIvol: 53.2 mGy. DLP: 1017 mGy-cm. mGy. LIMITATIONS: None. FINDINGS: VENTRICLES: Normal size and contour. CEREBRUM: No masses. No hemorrhage. No midline shift. No evidence for acute infarction. Normal gra y/white matter differentiation. No areas of low density in the white matter. CEREBELLUM: No masses. No hemorrhage. No alteration of density. No evidence for acute infarction. EXTRAAXIAL SPACES: No fluid collections. No masses. ORBITS AND GLOBE: No intra- or extraconal masses. Normal contour of globe without masses. CALVARIUM: No fracture. PARANASAL SINUSES: No fluid or mucosal thickening. SOFT TISSUES: No mass or hematoma. OTHER: No other significant finding. IMPRESSION: NORMAL BRAIN CT WITHOUT CONTRAST. EVIDENCE OF ACUTE STROKE: NO. COMMENT: Quality ID # [id number]: Final reports with documentation of one or more dose reduction techniques (e.g., Automated exposure control, adjustment of the mA and/or kV according to patient size, use of iterative reconstruction technique) TECHNICAL DOCUMENTATION: JOB ID: [id number] [employer]- All Rights Reserved Reading location - IP/workstation name: [email or web address]
[2018-02-01 13:52] VITALS: BP 139/84
== END 2018-02-01 13:52 | disposition home or self-care (01) ==
LOC: ER 10:24
DX: H53.8 Other visual disturbances (principal); R42 Dizziness and giddiness; R51 Headache; R11.0 Nausea; F17.200 Nicotine dependence, unspecified, uncomplicated; J45.909 Unspecified asthma, uncomplicated
CPT/HCPCS: 99284; 96361; 96374; 96375; 36415; 84703; 85025; 80053; 70450; J1200; J1885; J2765; J7030